=== PATIENT | male | born 1980 | race Caucasian/White ===

== ENCOUNTER 2024-10-17 08:52 | Emergency (ER) | payer SELFPAY ==
[~2024-10-17] VITALS: Ht 165.1 cm; Wt 80.0 kg
[2024-10-17 08:59] VITALS: TEMP 98.2
[2024-10-17] MEDS: OxyCODONE HCL/ACETAMINOPHEN 5-325 MG TABLET PO ONE (10:22)
[2024-10-17] MEDS ORDERED: POVIDONE-IODINE 10% 15 ML SOLUTION UD ONE (10:57)
[2024-10-17] MEDS: DOXYCYCLINE HYCLATE 100 MG TABLET PO ONE (11:27)
[2024-10-17] MEDS: SULFAMETHOX/TRIMETH DS 800-160 MG/TABLET PO ONE (11:28)
[2024-10-17 11:31] VITALS: BP 119/70; PULSE 81; RESP 16; O2SAT 98
[2024-10-17] MEDS ORDERED: NEOMYCIN/POLYMYXIN B/HYDROCORT 10 ML OTIC SUSPENSION AD ONE (12:45)
[2024-10-17] MEDS ORDERED: SULF-261 PO (13:00)
[2024-10-17] MEDS ORDERED: DOXY-354 PO (13:01)
== END 2024-10-17 13:07 | disposition home or self-care (01) ==
LOC: EMS 08:59
DX: L02.412 Cutaneous abscess of left axilla (principal); L73.2 Hidradenitis suppurativa; Z88.0 Allergy status to penicillin
CPT/HCPCS: 99284; 10060; A4247